=== PATIENT | male | born 1990 | race Caucasian/White ===

== ENCOUNTER 2018-07-18 12:27 | Emergency (ER) | payer MEDICAID ==
[~2018-07-18] VITALS: Ht 180.3 cm; Wt 79.4 kg
[2018-07-18 12:44] VITALS: BP 137/86
== END 2018-07-18 14:06 | disposition home or self-care (01) ==
LOC: ER 12:27 → EDBD 12:27 → ER 14:06
DX: L03.116 Cellulitis of left lower limb (principal); L03.115 Cellulitis of right lower limb; F17.210 Nicotine dependence, cigarettes, uncomplicated; Z59.0 Homelessness

== ENCOUNTER 2018-07-26 00:07 | Emergency (ER) | payer MEDICAID ==
[~2018-07-26] VITALS: Ht 180.3 cm; Wt 79.4 kg
[2018-07-26] MEDS ORDERED: LORazepam 2MG/ML-1ML VIAL IV ONE (00:30)
[2018-07-26] MEDS ORDERED: SODIUM CHLORIDE 0.9% 1,000 ML IV ONE (00:30)
[2018-07-26 03:02] VITALS: BP 134/65
== END 2018-07-26 03:08 ==
LOC: ER 00:07
DX: E86.0 Dehydration (principal); F41.9 Anxiety disorder, unspecified; F28 Other psychotic disorder not due to a substance or known physiological condition; F17.210 Nicotine dependence, cigarettes, uncomplicated; F12.10 Cannabis abuse, uncomplicated; Z59.0 Homelessness
CPT/HCPCS: 96361; 96374; 99284; J2060; 93005

== ENCOUNTER 2018-08-08 14:00 | Emergency (ER) | payer MEDICAID ==
[~2018-08-08] VITALS: Ht 180.3 cm; Wt 79.4 kg
[2018-08-08 14:25] VITALS: BP 136/66
== END 2018-08-08 18:35 | disposition left against medical advice (07) ==
LOC: ER 14:00
DX: R51 Headache (principal); Z53.21 Procedure and treatment not carried out due to patient leaving prior to being seen by health care provider

== ENCOUNTER 2018-08-21 15:42 | Emergency (ER) | payer MEDICAID ==
[~2018-08-21] VITALS: Ht 175.3 cm; Wt 77.1 kg
[2018-08-21 15:45] VITALS: BP 156/81
== END 2018-08-21 16:40 | disposition home or self-care (01) ==
LOC: ER 15:42
DX: B35.3 Tinea pedis (principal); F17.210 Nicotine dependence, cigarettes, uncomplicated; F12.10 Cannabis abuse, uncomplicated

== ENCOUNTER 2019-09-19 12:58 | Emergency (ER) | payer SELFPAY ==
[~2019-09-19] VITALS: Ht 180.3 cm; Wt 77.1 kg
[2019-09-19 13:13] VITALS: BP 136/77
== END 2019-09-19 14:38 | disposition home or self-care (01) ==
LOC: EDBD 12:58 → EDUNIT# 12:58 → ER 13:03
DX: S96.912A Strain of unspecified muscle and tendon at ankle and foot level, left foot, initial encounter (principal); S96.911A Strain of unspecified muscle and tendon at ankle and foot level, right foot, initial encounter; E86.0 Dehydration; F17.210 Nicotine dependence, cigarettes, uncomplicated; F12.10 Cannabis abuse, uncomplicated; Z59.0 Homelessness; X58.XXXA Exposure to other specified factors, initial encounter; Y93.89 Activity, other specified; Y99.8 Other external cause status; Y92.89 Other specified places as the place of occurrence of the external cause

== ENCOUNTER 2019-11-15 05:36 | Emergency (ER) | payer MEDICAID, OTHER ==
[~2019-11-15] VITALS: Ht 177.8 cm; Wt 77.1 kg
[2019-11-15 05:45] VITALS: BP 124/69
== END 2019-11-15 08:00 | disposition left against medical advice (07) ==
LOC: EDBD 05:36 → ER 05:36
DX: F20.9 Schizophrenia, unspecified (principal); F17.210 Nicotine dependence, cigarettes, uncomplicated; Z59.0 Homelessness